=== PATIENT | female | born 1945 | race Two or more races ===

== ENCOUNTER 2023-07-04 13:29 | Emergency (ER) | payer MEDICARE, OTHER ==
[~2023-07-04] VITALS: Ht 152.4 cm; Wt 130.0 kg
[2023-07-04 13:50] VITALS: BP 140/66; TEMP 98.7
[2023-07-04 14:22] VITALS: PULSE 68; RESP 18; O2SAT 96
== END 2023-07-04 15:28 | disposition home or self-care (01) ==
LOC: EDUNIT# 13:29 → ER 13:29 → EDBD 13:29 → ER 15:28
DX: G50.0 Trigeminal neuralgia (principal)